=== PATIENT | female | born 1985 ===

== ENCOUNTER 2021-10-14 12:45 | Emergency (ER) | payer SELFPAY ==
[~2021-10-14] VITALS: Ht 160 cm; Wt 61.4 kg
[2021-10-14 12:53] VITALS: BP 110/74
== END 2021-10-14 14:15 | disposition left against medical advice (07) ==
LOC: EMS 12:45
DX: N20.0 Calculus of kidney (principal); Z53.21 Procedure and treatment not carried out due to patient leaving prior to being seen by health care provider